=== PATIENT | male | born 1980 | race Caucasian/White ===

== ENCOUNTER 2017-05-16 15:19 | Emergency (ER) | payer OTHER ==
[~2017-05-16] VITALS: Ht 188 cm; Wt 70.5 kg
[2017-05-16 15:33] VITALS: BP 125/77; TEMP 97.3
[2017-05-16 17:35] VITALS: PULSE 68
== END 2017-05-16 17:36 | disposition home or self-care (01) ==
LOC: COL.ER 15:19
DX: S93.401A Sprain of unspecified ligament of right ankle, initial encounter (principal); X50.1XXA Overexertion from prolonged static or awkward postures, initial encounter; Y92.007 Garden or yard of unspecified non-institutional (private) residence as the place of occurrence of the external cause

== ENCOUNTER 2017-06-20 18:27 | Emergency (ER) | payer OTHER ==
[~2017-06-20] VITALS: Ht 188 cm; Wt 66.6 kg
[2017-06-20 18:30] VITALS: BP 135/81; PULSE 85; TEMP 97.9
[2017-06-20] MEDS ORDERED: AMOXICILLIN 50500 MG PO (20:14)
== END 2017-06-20 20:30 | disposition home or self-care (01) ==
LOC: COL.ER 18:27
DX: K08.89 Other specified disorders of teeth and supporting structures (principal); F17.200 Nicotine dependence, unspecified, uncomplicated; Z87.820 Personal history of traumatic brain injury

== ENCOUNTER 2020-12-03 11:24 | Emergency (ER) | payer OTHER ==
[~2020-12-03] VITALS: Ht 188 cm; Wt 63.6 kg
[~2020-12-03 11:24] MED LIST: AMOXICILLIN 50500 MG PO
[2020-12-03 11:32] VITALS: BP 127/79; PULSE 78; TEMP 98.2
[2020-12-03] MEDS ORDERED: AMOXICILLIN 8751 TAB PO (11:39)
== END 2020-12-03 12:10 | disposition home or self-care (01) ==
LOC: COL.ER 11:24
DX: K04.7 Periapical abscess without sinus (principal); F17.210 Nicotine dependence, cigarettes, uncomplicated
CPT/HCPCS: J1885

== ENCOUNTER 2021-01-22 20:05 | Emergency (ER) | payer OTHER ==
[~2021-01-22] VITALS: Ht 188 cm; Wt 65.9 kg
[~2021-01-22 20:05] MED LIST changes: +AMOXICILLIN 8751 TAB PO
[2021-01-22 20:41] VITALS: TEMP 98.6
[2021-01-22 21:47] VITALS: BP 122/74; PULSE 71
== END 2021-01-22 21:47 | disposition home or self-care (01) ==
LOC: COL.ER 20:05
DX: S02.5XXA Fracture of tooth (traumatic), initial encounter for closed fracture (principal); K02.9 Dental caries, unspecified; F17.210 Nicotine dependence, cigarettes, uncomplicated; Z88.6 Allergy status to analgesic agent; X58.XXXA Exposure to other specified factors, initial encounter

== ENCOUNTER 2022-03-10 18:34 | Emergency (ER) | payer OTHER ==
[~2022-03-10] VITALS: Ht 188 cm; Wt 65.9 kg
[2022-03-10 18:59] VITALS: TEMP 98
[2022-03-10 20:05] VITALS: BP 132/78; PULSE 76
== END 2022-03-10 20:07 | disposition home or self-care (01) ==
LOC: COL.ER 18:34
DX: S92.414A Nondisplaced fracture of proximal phalanx of right great toe, initial encounter for closed fracture (principal); Z28.310 Unvaccinated for COVID-19; W22.01XA Walked into wall, initial encounter

== ENCOUNTER 2024-03-10 06:32 | Emergency (ER) | payer OTHER ==
[~2024-03-10] VITALS: Ht 188 cm; Wt 72.7 kg
[2024-03-10 06:42] VITALS: TEMP 97.6
[2024-03-10 08:36] VITALS: BP 145/99; PULSE 58
== END 2024-03-10 08:36 | disposition short-term general hospital (02) ==
LOC: COL.ER 06:32
DX: N50.82 Scrotal pain (principal)

== ENCOUNTER 2024-07-28 22:14 | Emergency (ER) | payer OTHER ==
[~2024-07-28] VITALS: Ht 185.4 cm; Wt 70.5 kg
[2024-07-28 22:20] VITALS: BP 126/74; TEMP 97.9
[2024-07-28] MEDS ORDERED: ROBAXIN 50500 MG/TAB PO (22:44)
[2024-07-28] MEDS ORDERED: Home HYDROcodone/Acetaminophen 5/325 MG #4 TABS/PACK PO ONE (22:45)
[2024-07-28] MEDS ORDERED: Ketorolac 30 MG/ML VIAL IM ONE (22:45)
[2024-07-28 23:09] VITALS: PULSE 89
== END 2024-07-28 23:05 | disposition home or self-care (01) ==
LOC: COL.ER 22:14
DX: M54.50 Low back pain, unspecified (principal); M54.6 Pain in thoracic spine; G89.29 Other chronic pain; Z87.828 Personal history of other (healed) physical injury and trauma
CPT/HCPCS: J1885